=== PATIENT | male | born 2000 | race Caucasian/White ===

== ENCOUNTER 2019-06-30 23:44 | Emergency (ER) | payer OTHER, SELFPAY ==
[2019-07-01 00:03] VITALS: BP 153/82; PULSE 100; RESP 15; TEMP 37.2; O2SAT 99; BMI 33.0
[2019-07-01] MEDS: KETOROLAC 60 MG/2 ML VIAL 30 MG IV (01:05)
[2019-07-01] MEDS: diphenhydrAMINE 50 MG/ML VIAL 25 MG IV (01:05)
[2019-07-01] MEDS: SODIUM CHLORIDE 0.9% 1,000 ML 1000 ML IV (01:05)
[2019-07-01] MEDS: METOCLOPRAMIDE 10 MG/2 ML INJ IV (01:06)
[2019-07-01] MEDS: OFLOXACIN 0.3% OTIC 5 ML 5 DROPS EAR-LEFT (01:20)
--- NOTE | 2019-07-01 01:30 | PC.NURSE ---
eft face started swelling last night and getting worse.
[2019-07-01 01:36] LABS: Add Manual Diff / Slide Review NO; Basophils Absolute Auto 0 /uL (0-100); Basophils Percent Auto 0.3 % (0-2); Eosinophils Absolute Auto 200 /uL (0-450); Eosinophils Percent Auto 1.9 % (2-4); Hematocrit 41.1 % (41-53); Lymphocytes Absolute Auto 2300 /uL (1100-4500); Lymphocytes Percent Auto 29.7 % (25-40); Mean Corpuscular Hemoglobin 30.4 PG (26-34); Mean Corpuscular Volume 89.4 fL (80-100); Monocytes Absolute Auto 600 /uL (0-900); Monocytes Percent Auto 7.8 % (3-14); Neutrophils Absolute Auto 4700 /uL (1500-7000); Neutrophils Percent Auto 60.3 % (50-75); Platelet Count 211 X10^3/uL (150-400); Red Cell Distribution Width 12.7 % (11.6-14.8); White Blood Cell Count 7.9 X10^3/uL (4.5-11.0)
[2019-07-01 01:44] LABS: BUN Creatinine Ratio 14.1 (6-22); Blood Urea Nitrogen 14 mg/dL (9-20); Calcium 9.4 mg/dL (8.4-10.2); Carbon Dioxide 29 mmol/L (22-32); Chloride 105 mmol/L (98-107); Estimated Glomerular Filt Rate > 60.0 mL/min (>60); Glucose 112 mg/dL (70-100); HEMOLYSIS < 15 (0-50); Sodium 141 mmol/L (137-145)
[2019-07-01 01:50] VITALS: BP 139/77; PULSE 89; RESP 16; O2SAT 99
--- NOTE | 2019-07-01 01:54 | ED_ITS ---
HPI - Ear Problem General Chief complaint: Ear Stated complaint: ruptured ear drum tues/migraine/ear pain Time Seen by Provider: 07/01/19 00:23 Source: patient and family Mode of arrival: Ambulatory Limitations: no limitations History of Present Illness HPI Narrative: HPI: The patient is a 18-year-old male who states that he developed a ruptured eardrum on Thursday when he saw his primary care physician. He was not having any significant pain or discomfort but decreased hearing. There was no explanation for his ruptured tympanic membrane. According to his primary care physician the patient states that he did not have any signs of infection but was placed on Zithromax 500 mg per day for the next 3 days. E peternaveen today he took his last dose of the medications. He has developed a headache in the back of his head that was an aching throbbing discomfort with photophobia and phonophobia. He was also complaining of pain in his left ear. He had no significant nausea vomiting dizziness or passing out. He denies a history of migraines or headaches but his mother stated that when he was younger he had frequent headaches and diagnosed to have migraines. He does not smoke cigarettes or drink alcohol. He denies a history of hypertension and diabetes mellitus. He denies any fever chills or sweats. He has had no loss of vision or blurred vision or diplopia. He has had no significant cough shortness of breath chest pain palpitations. He has had known nausea or vomiting as well as diarrhea or any urinary symptoms. Related Data Previous Rx's Medication Instructions Recorded amoxicillin 500 mg PO TID #21 cap 07/01/19 naproxen [Naprosyn] 500 mg PO BID PRN #20 tab 07/01/19 ofloxacin 5 drop EAR-LEFT BID #5 ml 07/01/19 Allergies Allergy/AdvReac Type Severity Reaction Status Date / Time No Known Drug Allergies Allergy Verified 07/01/19 01:04 Review of Systems Review of Systems Narrative: All review of systems were negative except for those mentioned in the history of present illness. Patient History Social History Smoking Status: Never smoker Smoking Status: Never smoker Substance Use Type: does not use Exam Narrative Exam Narrative: PHYSICAL EXAM: CONSTITUTIONAL: Awake, Alert, Oriented, Coherent, Cooperative in NAD. Does not appear toxic or ill. HEAD: AT/NC EENT: PERRL, FROM of eyes, no discharge, . There is no external drainage from his ears. However examination of the right external auditory canal reveals that it is occluded with cerumen. The left external auditory canal has a macerated canal with purulent cloudy drainage from the left ear. There was no erythema noted. He had no significant tenderness over the mastoid process. He had mild minimal tenderness to palpation over the tragus and tugging on the left auricle. The pre-auricular soft tissue was mildly tender without palpable lymph nodes. Inferior to the left ear there was mild tenderness but no palpable discrete lymph nodes. No epistaxis or nasal drainage Oral mucosa is moist and pink, posterior pharynx is without erythema or exudate. NECK: Supple, no obvious JVD, Trachea is midline without stridor, no palpable LN . SPINE: No gross deformity, no palpable tenderness of the cervical, thoracic, lumbar or sacral spine. No CVA tenderness. THORAX: No deformity, retractions, chest wall tenderness. LUNGS: Clear with symmetrical breath sounds without respiratory distress HEART: Normal heart tones, regular rhythm and rate without murmur. ABDOMEN: Soft, non-tender, normal bowel sounds without guarding, rebound, rigidity or palpable mass . EXTREMITIES: No edema, cyanosis, deformity or tenderness. SKIN: No rash, bruising, petechiae or purpura. NEURO: Awake, alert, oriented, conversive, cranial nerves II-XII are symmetrical and normal, moves all 4 extremities and is ambulatory. Initial Vital Signs Initial Vital Signs: Vital Signs Temperature 98.9 F 07/01/19 00:03 Pulse Rate 100 H 07/01/19 00:03 Respiratory Rate 15 07/01/19 00:03 Blood Pressure 153/82 H 07/01/19 00:03 Pulse Oximetry 99 07/01/19 00:03 Course Course Course Narrative: 0125: The patient's pain and discomfort has completely res olved. The patient has completed his course of Zithromax which was 500 mg q.day for 3 days according to the patient's mother. He will be discharged home and instructed to use Benadryl 25 mg Q 4-6 hours as needed for headache Naprosyn 500 mg b.i.d. for pain and discomfort in the ear and headache and to instill the ofloxacin ear drops in his left ear and to follow-up with ENT as arranged by his primary care physician. Orders Ordered: ED Orders 07/01/19 01:20 Basic Metabolic Panel Stat Complete Blood Count AUTO DIFF Stat Discontinued Medications Diphenhydramine HCl (Benadryl) 25 mg IV NOW ONE Stop: 07/01/19 00:51 Last Admin: 07/01/19 01:05 Dose: 25 mg Documented by: FARAZ Sodium Chloride (Normal Saline 0.9%) 1,000 mls @ 1,000 mls/hr IV BOLUS ONE Stop: 07/01/19 01:51 Last Admin: 07/01/19 01:05 Dose: 1,000 mls/hr Documented by: FARAZ Ketorolac Tromethamine (Toradol) 30 mg IV NOW ONE Stop: 07/01/19 00:51 Last Admin: 07/01/19 01:05 Dose: 30 mg Documented by: FARAZ Metoclopramide HCl (Reglan) 10 mg IV NOW ONE Stop: 07/01/19 00:51 Last Admin: 07/01/19 01:06 Dose: 10 mg Documented by: FARAZ Ofloxacin (Floxin 0.3% Otic) 5 drops EAR-LEFT NOW ONE Stop: 07/01/19 00:51 Last Admin: 07/01/19 01:20 Dose: 5 drops Documented by: FARAZ Vital Signs Vital signs: Vital Signs - 8 hr 07/01/19 00:03 07/01/19 01:50 Temperature 98.9 F Pulse Rate 100 H 89 Respiratory Rate 15 16 Blood Pressure 153/82 H 139/77 Pulse Oximetry 99 99 Medical Decision Making Lab Data Result diagrams: 07/01/19 01:20 07/01/19 01:20 Labs: Lab Results 07/01/19 07/01/19 Range/Units 01:20 01:20 WBC 7.9 (4.5-11.0) X10^3/uL RBC 4.60 (4.5-5.9) X10^6/uL Hgb 14.0 (13.5-17.5) g/dL Hct 41.1 (41-53) % MCV 89.4 (80-100) fL MCH 30.4 (26-34) PG MCHC 34.0 (30-36) % RDW 12.7 (11.6-14.8) % Plt Count 211 (150-400) X10^3/uL Neut % (Auto) 60.3 (50-75) % Lymph % (Auto) 29.7 (25-40) % [place] % (Auto) 7.8 (3-14) % Eos % (Auto) 1.9 L (2-4) % Baso % (Auto) 0.3 (0-2) % Neut # (Auto) 4700 (3100-7206) /uL Lymph # (Auto) 2300 (5846-7531) /uL [place] # (Auto) 600 (0-900) /uL Eos # (Auto) 200 (0-450) /uL Baso # (Auto) 0 (0-100) /uL Sodium 141 (137-145) mmol/L Potassium 4.0 (3.4-5.1) mmol/L Chloride 105 (98-107) mmol/L Carbon Dioxide 29 (22-32) mmol/L BUN 14 (9-20) mg/dL Creatinine 0.99 (0.66-1.25) mg/dL Estimated GFR > 60.0 (>60) mL/min BUN/Creatinine Ratio 14.1 (6-22) Glucose 112 H (70-100) mg/dL Calcium 9.4 (8.4-10.2) mg/dL Discharge Plan Departure Patient Disposition: Home Clinical Impression: Occipital headache Otitis media Qualifiers: Otitis media type: unspecified Laterality: left Qualified Code(s): H66.92 - Otitis media, unspecified, left ear Acute otalgia Qualifiers: Laterality: left Qualified Code(s): H92.02 - Otalgia, left ear Otitis media, purulent, acute, with spontaneous rupture of TM Qualifiers: Laterality: left Recurrence: not specified as recurrent Qualified Code(s): H66.012 - Acute suppurative otitis media with spontaneous rupture of ear drum, l eft ear Discharge Date/Time: 07/01/19 01:50 Instructions: DI for Otitis Media (Middle Ear Infection)-Child Activity Restrictions/Additional Instructions: 1. Since you have developed a. All in drainage from your ear continue the ofloxacin ear drops as prescribed. 2. Take the amoxicillin 500 mg 3 times a day as prescribed. 3. For headache pain and discomfort, as well as earache take the Naprosyn 500 mg twice a day and Benadryl 25 mg every 6 hours as needed 4. Follow-up with your primary care physician to be re-evaluated in 48-72 hours and referred to an ENT physician as necessary. 5. If you develop worsening pain or discomfort fever dizziness where your balance is off passing-out you need to return to the emergency department otherwise follow-up with your primary care physician. Prescriptions: New amoxicillin 500 mg capsule 500 mg PO TID Qty: 21 RF: 0 naproxen [Naprosyn] 500 mg tablet 500 mg PO BID PRN (Reason: pain) Qty: 20 RF: 0 ofloxacin 0.3 % drops 5 drop EAR-LEFT BID Qty: 5 RF: 1 Referrals: Marcela Godoy DO [Primary Care Provider] - ED Sign-out Cosign ED Attending Cosignature Attestation: I was immediately available in the department for consultation. This documentation has been reviewed and I agree with assessment and plan. Supervised by River Gross MD
== END 2019-07-01 01:50 | disposition home or self-care (01) ==
PROVIDERS: Emergency Provider Emergency Medicine; Family Provider Pediatrics Pediatric Emergency Medicine; PCP Family Medicine
DX: H66.012 Acute suppurative otitis media with spontaneous rupture of ear drum, left ear (principal); R51 Headache; H92.02 Otalgia, left ear
CPT/HCPCS: 36415; 80048; 85025; 96361; 96374; 96375; 99284; J1200; J1885; J2765

== ENCOUNTER 2019-07-07 11:50 | Emergency (ER) | payer OTHER, SELFPAY ==
[2019-07-07 11:56] VITALS: BP 168/93; PULSE 96; RESP 15; TEMP 36.8; O2SAT 98; BMI 33.9
--- NOTE | 2019-07-07 12:18 | ED_ITS ---
HPI - Ear Problem <RAGHU Dunbar-TAMMY - Last Filed: 07/07/19 15:57> General Chief complaint: Ear Stated complaint: ears bleeding since yesterday Time Seen by Provider: 07/07/19 11:52 Source: patient and family Mode of arrival: Ambulatory Limitations: no limitations History of Present Illness HPI Narrative: The patient is a 18-year-old male nonsmoker presents with his mother for chief complaint of continued ear drainage. He states that he was seen 1 week ago, was started on ear drops and antibiotics. He had previously been on a different antibiotic. Chart review illustrate that the patient was on azithromycin 500 mg b.i.d. for 3 days. Then was on amoxicillin 500 mg t.i.d.. He is placed on ofloxacin ear drops last week, his mother states that she refilled them today. She has not followed up with primary care provider. She has not followed through with. Nose and throat, but states that the patient does have a referral. He denies any fevers nausea vomiting diarrhea or a bdominal pain. He states that his ears still leaking bloody drainage. Left ear only, not his right ear. Related Data Previous Rx's Medication Instructions Recorded amoxicillin 500 mg PO TID #21 cap 07/01/19 naproxen [Naprosyn] 500 mg PO BID PRN #20 tab 07/01/19 ofloxacin 5 drop EAR-LEFT BID #5 ml 07/01/19 ciprofloxacin-dexamethasone 4 drop EAR-LEFT BID 7 Days #7.5 ml 07/07/19 [Ciprodex] Allergies Allergy/AdvReac Type Severity Reaction Status Date / Time No Known Drug Allergies Allergy Verified 07/07/19 11:56 Review of Systems <JO ANN Dunbar - Last Filed: 07/07/19 15:57> Review of Systems Narrative: GENERAL: Denies chills, fatigue, malaise, fever, sweats. HEENT: See HPI RESPIRATORY: Denies dyspnea, cough, wheezing, hemoptysis, sputum. CARDIOVASCULAR: Denies chest pain, palpitations, orthopnea, edema, GASTROINTESTINAL: Denies nausea, vomiting, abdominal pain, diarrhea, constipation, melena. : Denies dysuria, frequency, incontinence, hematuria, urinary retention. MUSCULOSKELETAL: denies weakness, joint pain, or bony pain SKIN: Denies rash, skin lesions, or other NEUROLOGIC: Denies weakness, headache, numbness, change in speech, confusion, seizures, incoordination. PSYCHIATRIC: No concerning psychosocial issues. 12 point review of systems is negative except for those stated above Patient History <JO ANN Dunbar - Last Filed: 07/07/19 15:57> Social History Smoking Status: Never smoker Smoking Status: Never smoker alcohol intake frequency: holidays/special occasions only Substance Use Type: does not use Exam <JO ANN Dunbar - Last Filed: 07/07/19 15:57> Narrative Exam Narrative: GENERAL: This is a well-nourished, well-developed patient, in no acute distress HEAD: Atraumatic. Normocephalic. No temporal or scalp tenderness. EYES: Pupils equal round and reactive. Extraocular motions intact. No scleral icterus. No injection or drainage. ENT: Nose without bleeding, purulent drainage or septal hematoma. Throat without erythema, tonsillar hypertrophy or exudate. Uvula midline. Airway patent. Right ear canal cerumen impaction. Left ear canal swollen, erythema, or watery drainage noted. Unable to completely visualize tympanic membrane. NECK: Trachea midline. No JVD or lymphadenopathy. Supple, nontender, no meningeal signs. CARDIOVASCULAR: Regular rate and rhythm without murmurs, gallops, or rubs. RESPIRATORY: Clear to auscultation. Breath sounds equal bilaterally. No wheezes, rales, or rhonchi. No cough. No increased respiratory effort. No accessory muscle use. EXTREMITIES: No clubbing, cyanosis, or edema. No joint tenderness, effusion, or edema noted. BACK: Nontender without deformity or crepitance. No flank tenderness. NEURO: AOx3. SKIN: No rash or erythema. Initial Vital Signs Initial Vital Signs: Vital Signs Temperature 98.2 F 07/07/19 11:56 Pulse Rate 96 H 07/07/19 11:56 Respiratory Rate 15 07/07/19 11:56 Blood Pressure 168/93 H 07/07/19 11:56 Pulse Oximetry 98 07/07/19 11:56 <Ashvin Elliott DO - Last Filed: 07/07/19 17:17> Initial Vital Signs Initial Vital Signs: Vital Signs Temperature 98.2 F 07/07/19 11:56 Pulse Rate 96 H 07/07/19 11:56 Respiratory Rate 15 07/07/19 11:56 Blood Pressure 168/93 H 07/07/19 11:56 Pulse Oximetry 98 07/07/19 11:56 Course <Lilli RAGHU Marmolejo-BC - Last Filed: 07/07/19 15:57> Vital Signs Vital signs: Vital Signs - 8 hr 07/07/19 11:56 Temperature 98.2 F Pulse Rate 96 H Respiratory Rate 15 Blood Pressure 168/93 H Pulse Oximetry 98 <Ashvin Elliott DO - Last Filed: 07/07/19 17:17> Vital Signs Vital signs: Vital Signs - 8 hr 07/07/19 11:56 Temperature 98.2 F Pulse Rate 96 H Respiratory Rate 15 Blood Pressure 168/93 H Pulse Oximetry 98 Medical Decision Making <RAGHU Dunbar-BC - Last Filed: 07/07/19 15:57> MDM Narrative Medical decision making narrative: The patient is a 18-year-old male who presents with a chief complaint of continued ear drainage. Exam indicates persistent otitis externa. Encouraged stopping the refill of ofloxacin, starting Ciprodex. Discussed at length the importance of following up with primary care provider. Following through with ENT referral as previously made. Patient mother no questions or concerns upon discharge and state understanding return precautions as well as follow-up care. Discharge Plan Departure Patient Disposition: Home Clinical Impression: Otitis externa Qualifiers: Otitis externa type: unspecified type Chronicity: unspecified Laterality: left Qualified Code(s): H60.92 - Unspecified otitis externa, left ear Discharge Date/Time: 07/07/19 12:45 Instructions: How to Instill Ear Drops, Ruptured Eardrum, DI for Otitis Externa Activity Restrictions/Additional Instructions: Thank you for trusting us with your care today. I sent a prescription of a different ear drops to [facility] in [place]. Please stop using the ofloxacin and start using the new drop, 4 drops twice a day. Please follow-up with primary care provider in the next few days. Please come back to the emergency department for any acute concerns. Prescriptions: New Ciprodex 0.3-0.1 % drops,suspension 4 drop EAR-LEFT BID 7 Days Qty: 7.5 RF: 0 No Action amoxicillin 500 mg capsule 500 mg PO TID Qty: 21 RF: 0 naproxen [Naprosyn] 500 mg tablet 500 mg PO BID PRN (Reason: pain) Qty: 20 RF: 0 ofloxacin 0.3 % drops 5 drop EAR-LEFT BID Qty: 5 RF: 1 Referrals: Marcela Godoy DO [Primary Care Provider] - <Ashvin Elliott DO - Last Filed: 07/07/19 17:17> Cosign ED Attending Cosignature Attestation: Dr Elliott Co-Sign Statement: I was available for consultation during this patient's emergency department visit. This chart is signed by myself for administrative purposes only. I did not have direct contact with this patient during this visit. They were seen independently by the APC.
--- NOTE | 2019-07-07 13:03 | PC.NURSE ---
recently completed two rounds of abx, has been using ear drops. No pain. Reports increase bloody drainage.
== END 2019-07-07 12:45 | disposition home or self-care (01) ==
PROVIDERS: Emergency Provider Nurse Practitioner Family; Family Provider Pediatrics Pediatric Emergency Medicine; PCP Family Medicine
DX: H60.92 Unspecified otitis externa, left ear (principal)
CPT/HCPCS: 99281

== ENCOUNTER → 2023-01-14 16:15 | Outpatient (CLI) | payer SELFPAY | PROVIDERS: Family Provider Pediatrics Pediatric Emergency Medicine; PCP Family Medicine; Visit Provider Nurse Practitioner Family | DX: J02.9 Acute pharyngitis, unspecified (principal) | CPT/HCPCS: 87070 ==

== ENCOUNTER 2025-01-06 16:57 | Emergency (ER) | payer OTHER, SELFPAY ==
[2025-01-06 17:03] VITALS: BP 153/75; PULSE 96; RESP 16; TEMP 36.7; O2SAT 98; BMI 28.2
--- NOTE | 2025-01-06 17:29 | PC.NURSE ---
placed in ccollar. tolerated well
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
[2025-01-06 17:59] LABS: Add Manual Diff / Slide Review NO; Hematocrit 43.2 % (41-53); Hemoglobin 14.9 g/dL (13.5-17.5); Lymphocytes Absolute Auto 1300 /uL (1100-4500); Mean Corpuscular HGB Conc 34.5 % (30-36); Mean Corpuscular Hemoglobin 30.7 PG (26-34); Mean Corpuscular Volume 89.0 fL (80-100); Platelet Count 189 X10^3/uL (150-400)
[2025-01-06 18:29] LABS: Alanine Aminotransferase 61 IU/L (<50); Albumin 4.9 g/dL (3.5-5.0); Albumin Globulin Ratio 1.5 (1.0-2.8); Alkaline Phosphatase 97 U/L (38-126); Blood Urea Nitrogen 23 mg/dL (9-20); Calcium 9.6 mg/dL (8.4-10.2); Carbon Dioxide 27 mmol/L (22-32); Chloride 104 mmol/L (98-107); Estimated Glomerular Filt Rate > 60 mL/min (>60); Globulin 3.2 g/dL (1.7-4.1); Glucose 93 mg/dL (70-99); HEMOLYSIS < 15 (0-50); Lipase 66 U/L (23-300); Potassium 4.0 mmol/L (3.4-5.1); Sodium 142 mmol/L (137-145); Total Protein 8.1 g/dL (6.3-8.2)
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
[2025-01-06] MEDS: KETOROLAC 30 MG/ML VIAL 15 MG IV (19:59)
[2025-01-06 20:22] VITALS: BP 136/86; PULSE 89; RESP 18; O2SAT 98
== END 2025-01-06 20:24 | disposition home or self-care (01) ==
PROVIDERS: Emergency Provider Emergency Medicine; Family Provider Pediatrics Pediatric Emergency Medicine; PCP Family Medicine
DX: S20.212A Contusion of left front wall of thorax, initial encounter (principal); S16.1XXA Strain of muscle, fascia and tendon at neck level, initial encounter; V89.2XXA Person injured in unspecified motor-vehicle accident, traffic, initial encounter
CPT/HCPCS: 71046; 72125; 80053; 83690; 85025; 96374; 99284; J1885